=== PATIENT | female | born 1975 | race African-American/Black ===

== ENCOUNTER 2017-08-12 05:19 | Emergency (ER) | payer OTHER | END 2017-08-12 08:02 | disposition home or self-care (01) | LOC: ER 05:19 | DX: S63.502A Unspecified sprain of left wrist, initial encounter (principal); Z88.8 Allergy status to other drugs, medicaments and biological substances; X50.9XXA Other and unspecified overexertion or strenuous movements or postures, initial encounter; Y93.89 Activity, other specified; Y99.8 Other external cause status; Y92.89 Other specified places as the place of occurrence of the external cause | CPT/HCPCS: 29125; 73110; 99284-25 ==

== ENCOUNTER 2017-11-12 08:01 | Emergency (ER) | payer OTHER ==
[~2017-11-12] VITALS: Ht 157.5 cm; Wt 78.9 kg
[2017-11-12] MEDS ORDERED: KETOROLAC 15 MG/ML VIAL. IV ONE (08:30)
[2017-11-12] MEDS ORDERED: METOCLOPRAMIDE HCL 10 MG/2 ML VIAL. IV ONE (08:30)
[2017-11-12] MEDS ORDERED: diphenhydrAMINE 50 MG/ML VIAL IVP ONE ×2 (08:30→09:45)
[2017-11-12] MEDS ORDERED: IV NORMAL SALINE 1000ML BAG 1,000 ML IV ONE (08:30)
--- NOTE | 2017-11-12 08:38 | PHYS DOC ---
Past Medical History Past Medical History: Diabetes-Type II Additional Past Medical Histor: he has headaches Past Surgical History: Tonsillectomy, Tubal ligation, Other Additional Past Surgical Histo: D & C Smoking: Less than 1pk/day Alcohol Use: Rarely Drug Use: None Adult General Chief Complaint Chief Complaint: HEADACHE HPI HPI 42-year-old female presents to ER via POV with complaints of headache which started yesterday around 5 AM. Patient reports she used to have headaches when she was being tx'd for her diabetes- reporting her BS have stabilized and she isn't taking meds any longer. Pt reports pain at 10 out of 10 denying this being the worst headache she has experienced. Patient denies dizziness, lightheadedness, falls, or confusion. Patient reports she does have photosensitivity. Patient denies any nausea or vomiting. Patient reports yesterday she took hydrocodone in the morning and then 2 Aleve tablets around 5 PM otherwise has taken no other medications for her pain. She reports her appetite has been regular. Patient denies any urinary symptoms. Pt reports she is currently on Flagyl for BV- but has only taken 1 dose of the medication since Rx'd . as she has forgotten to take the medication. She reports on Thursday she had cervical bx which was neg. for abnorm. findings. Pt was seen with steady gait from triage walking into rm 13 by this provider- unassisted. Review of Systems Review of Systems Constitutional: Denies fever or chills [] Eyes: Denies change in visual acuity, redness. Reports bilat. eye pain w/ photosensitivity HENT: Denies nasal congestion or sore throat [] Respiratory: Denies cough or shortness of breath [] Cardiovascular: No additional information not addressed in HPI [] GI: Denies abdominal pain, nausea, vomiting, bloody stools or diarrhea [] : Denies dysuria or hematuria [] Musculoskeletal: Denies back/neck pain or joint pain [] Integument: Denies rash,swelling, or skin lesions [] Neurologic: Denies focal weakness or sensory changes. Denies dizziness/ lightheadedness. Reports headache bilat. temporal/forehead Endocrine: Denies polyuria or polydipsia [] All other systems were reviewed and found to be within normal limits, except as documented in this note. Current Medications Current Medications Current Medications Medications (Trade) Dose Ordered Sig/Manolo Start Time Stop Time Status Last Admin Dose Admin Dexamethasone Sodium Phosphate (Decadron) 10 mg 1X ONCE 11/12/17 09:45 11/12/17 09:46 DC Diphenhydramine HCl (Benadryl) 12.5 mg 1X ONCE 11/12/17 09:45 11/12/17 09:46 DC Ketorolac Tromethamine (Toradol 15mg Vial) 15 mg 1X ONCE 11/12/17 08:30 11/12/17 08:50 DC 11/12/17 08:57 15 MG Metoclopramide HCl (Reglan Vial) 10 mg 1X ONCE 11/12/17 08:30 11/12/17 08:50 DC 11/12/17 08:58 10 MG Sodium Chloride 1,000 ml @ 1,000 mls/hr 1X ONCE 11/12/17 08:30 11/12/17 09:29 DC 11/12/17 08:57 1,000 MLS/HR Allergies Allergies Allergies Coded Allergies Type Severity Reaction Last Updated Verified nitroglycerin Allergy Intermediate 08/12/17 Yes Physical Exam Physical Exam Constitutional: Well developed, well nourished, no acute distress, non-toxic appearance. Clear speech/steady gait HENT: Normocephalic, atraumatic, bilateral ears normal, mucous membranes, no oral exudates, nose normal. [] Eyes: 3mm PERRLA, EOMI, no nystagmus, conjunctiva normal, no discharge. [] Neck: Normal range of motion, no tenderness, supple, no gross adenopathy Cardiovascular:Heart rate regular rhythm, no murmur [] Lungs & Thorax: Bilateral breath sounds clear to auscultation. Resp. equal/ nonlabored Abdomen: Bowel sounds normal, soft/nontender, no tenderness, no masses, no pulsatile masses. [] Skin: Warm, dry, no erythema, no rash. [] Back: No tenderness, no CVA tenderness. [] Extremities: No tenderness, no cyanosis, no clubbing, ROM intact, no edema. [] Neurologic: Alert and oriented X 3, normal motor function, normal sensory function, no focal deficits noted. [] Psychologic: Affect normal, judgement normal, mood normal. [] Current Patient Data Vital Signs Vital Signs Date Time Temp Pulse Resp B/P (MAP) Pulse Ox O2 Delivery O2 Flow Rate FiO2 9/27/18 09:03 79 18 100 11/12/17 08:17 99.5 121/72 (88) Room Air 99.5 Lab Values Laboratory Tests Test 11/12/17 08:10 11/12/17 08:19 11/12/17 08:24 Urine Collection Type Unknown Urine Color Yellow Urine Clarity Clear Urine pH 6.0 Urine Specific Marvell 1.025 Urine Protein Negative mg/dL (NEG-TRACE) Urine Glucose (UA) Negative mg/dL (NEG) Urine Ketones (Stick) Negative mg/dL (NEG) Urine Blood Negative (NEG) Urine Nitrite Negative (NEG) Urine Bilirubin Negative (NEG) Urine Urobilinogen Dipstick 0.2 mg/dL (0.2 mg/dL) Urine Leukocyte Esterase Negative (NEG) Urine RBC 0 /HPF (0-2) Urine WBC Occ /HPF (0-4) Urine Squamous Epithelial Cells Few /LPF Urine Bacteria Few /HPF (0-FEW) POC Urine HCG, Qualitative Hcg negative (Negative) Glucose (Fingerstick) 119 mg/dL (70-99) H EKG EKG [] Radiology/Procedures Radiology/Procedures [] Course & Med Decision Making Course & Med Decision Making Pertinent Labs and Imaging studies reviewed. (See chart for details) 0920: On reevaluation patient reports she has had slight improvement in headache. She remains alert and oriented 3 with no focal neuro deficits. Will provide additional dose of Benadryl and dose of Decadron. UA pending if those results normal limits discussed plans for home discharge with patient. Dragon Disclaimer Dragon Disclaimer This electronic medical record was generated, in whole or in part, using a voice recognition dictation system. Departure Departure Impression: Primary Impression: Headache Disposition: 01 HOME, SELF-CARE Condition: STABLE Referrals: UNKNOWN PCP NAME (PCP) Patient Instructions: General Headache Without Cause Additional Instructions: Plenty of water and well balanced meals. Tylenol and/or Ibuprofen as needed for pain as directed on container- if headache continues follow-up with primary doctor for further evaluation and care. SETH MCGOVERN [employer] Nov 12, 2017 08:38
[2017-11-12 09:17] LABS: BILIRUBIN,URINE NEGATIVE (NEG); CLARITY,URINE CLEAR; COLOR,URINE YELLOW; NITRITE,URINE NEGATIVE (NEG); PROTEIN,URINE NEGATIVE (NEG-TRACE); UROBILINOGEN,URINE 0.2 mg/dL (0.2 mg/dL)
[2017-11-12 09:27] LABS: SQUAMOUS EPITHELIAL CELL,UR FEW /LPF
[2017-11-12 09:28] LABS: BACTERIA,URINE FEW /HPF (0-FEW); RBC,URINE 0 /HPF (0-2); WBC,URINE OCC /HPF (0-4)
[2017-11-12] MEDS ORDERED: DEXAMETHASONE SOD PHOS 20 MG/5 ML VIAL. IV ONE (09:45)
[2017-11-12 09:47] VITALS: BP 105/62
== END 2017-11-12 09:47 | disposition home or self-care (01) ==
LOC: ER 08:01
DX: R51 Headache (principal); E11.9 Type 2 diabetes mellitus without complications; F17.200 Nicotine dependence, unspecified, uncomplicated; Z88.8 Allergy status to other drugs, medicaments and biological substances
CPT/HCPCS: 81001; 81025; 82962; 96374; 96375; 96376; 99284; J1100; J1200; J1885; J2765; J7030